=== PATIENT | female | born 1970 | race Caucasian/White ===

== ENCOUNTER → 2017-07-30 | Outpatient (CLI) | payer OTHER | LOC: FIMAGING 15:11 | PROVIDERS: ATTEND Orthopaedic Surgery | DX: M17.11 Unilateral primary osteoarthritis, right knee (principal) ==

== ENCOUNTER 2017-08-20 06:05 | Observation (INO) | payer OTHER ==
[~2017-08-20 06:05] MED LIST: BUPI/epINEPH/KETOROLAC IU ONE; ROPIVACAINE 0.2% 80 MG, EPINEPHrine 0.2 MG, KETOROLAC TROMETHAMINE 30 MG in SYRINGE 0 ML IU ONE; TRANEXAMIC ACID 3,000 MG in NS (SYRINGE) 50 ML IRR ONE
--- NOTE | 2017-08-20 06:26 | PDHPUP ---
History & Physical Update H&P update statement: This history and physical update is based on an assessment of the patient which was completed after admission or registration (within 24 hours), but prior to the surgery/procedure. H&P update: H&P reviewed & patient examined, no change in patient's condition since H&P completed
[2017-08-20] MEDS ORDERED: FAMOTIDINE 20 MG TAB PO ONE (06:45)
[2017-08-20] MEDS ORDERED: TRANEXAMIC ACID 3,000 MG/50 ML BAG IRR ONE (06:45)
[2017-08-20] MEDS ORDERED: ceFAZolin 2 GM/SWFI 2 GM/20 ML SYR IVP ONE (06:45)
[2017-08-20] MEDS ORDERED: ACETAMINOPHEN 325 MG TAB PO ONE (06:45)
[2017-08-20] MEDS ORDERED: DEXAMETHASONE 4 MG/ML VIAL IVP ONE (06:45)
[2017-08-20] MEDS ORDERED: LIDOCAINE 1% 2 ML INJ ID PRN (06:45)
[2017-08-20] MEDS ORDERED: LR 1,000 ML IV ONE (06:45)
--- NOTE | 2017-08-20 07:01 | PDANEPAE ---
ANE Past Medical History - Cardiovascular History Hx Hypertension: No Hx Arrhythmias: No Hx Chest Pain: No Hx Coronary Artery / Peripheral Vascular Disease: No Hx CHF / Valvular Disease: No Hx Palpitations: No - Pulmonary History Hx COPD: No Hx Asthma/Reactive Airway Disease: No Hx Recent Upper Respiratory Infection: No Hx Oxygen in Use at Home: No Hx Sleep Apnea: No Sleep Apnea Screening Result - Last Documented: Negative Pulmonary History Comment: EXERCISE INDUCED ASTHMA LAST USED INHALER 6 MONTHS AGO - Neurologic History Hx Cerebrovascular Accident: No Hx Seizures: No Hx Dementia: No - Endocrine History Hx Diabetes: No - Renal History Hx Renal Disorders: No - Liver History Hx Hepatic Disorders: No - Neurological & Psychiatric Hx Hx Neurological and Psychiatric Disorders: Yes Neurological / Psychiatric History Comment: DEPRESSION - Cancer History Hx Cancer: No - Congenital Disorder History Hx Congenital Disorders: No - GI History Hx Gastrointestinal Disorders: No - Other Health History Other Health History: OSTEOARTHRITIS - Chronic Pain History Chronic Pain: Yes (RT KNEE) - Surgical History Prior Surgeries: APPENDECTOMY 2016. DEISY KNEE SCOPE. LT ACL REPAIRED ANE Review of Systems Review of Systems: - Exercise capacity METS (RN): 6 METS ANE Patient History - Allergies Allergies/Adverse Reactions: methotrexate Allergy (Verified 07/29/17 14:21) INABILITY TO MOVE - Home Medications Home Medications: Prozac 10 MG (*) DAILY 07/29/17 [Last Taken 08/20/17 05:00] - NPO status NPO Since - Liquids (Date): 08/20/17 NPO Since - Liquids (Time): 05:45 NPO Since - Solids (Date): 08/19/17 NPO Since - Solids (Time): 07:30 - Smoking Hx Smoking Status: Never smoked ANE Labs/Vital Signs - Vital Signs Blood Pressure: 137/94 Heart Rate: 72 Respiratory Rate: 20 O2 Sat (%): 94 Height: 165.1 cm Weight: 65.771 kg ANE Physical Exam - Airway Neck exam: FROM Mallampati Score: Class 1 Mouth exam: normal dental/mouth exam - Pulmonary Pulmonary: no respiratory distress - Cardiovascular Cardiovascular: regular rate and rhythym - ASA Status ASA Status: I ANE Anesthesia Plan Anesthesia Plan: spinal Regional Anesthesia: adductor canal FNB
[2017-08-20] MEDS ORDERED: fentaNYL 100 MCG/2 ML INJ ONE (07:04)
[2017-08-20] MEDS ORDERED: MIDAZOLAM 2 MG/2 ML VIAL ONE (07:04)
[2017-08-20] MEDS ORDERED: BUPIVACAINE/DEXTROSE 7.5MG/ML 2 ML SPINAL AMP SP ONE (07:05)
[2017-08-20] MEDS ORDERED: METOCLOPRAMIDE 10 MG/2 ML VIAL ONE (07:05)
[2017-08-20] MEDS ORDERED: LIDOCAINE 2% 100 MG/5 ML SYR ONE (07:05)
[2017-08-20] MEDS ORDERED: DEXAMETHASONE 4 MG/ML VIAL ONE ×2 (07:05)
[2017-08-20] MEDS ORDERED: PROPOFOL/EMULSION 500 MG/50 ML BOTTLE IV ONE (07:05)
[2017-08-20] MEDS ORDERED: BUPIVACAINE/EPI 0.5% 30 ML SDV ONE (08:17)
[2017-08-20] MEDS ORDERED: METOCLOPRAMIDE 10 MG/2 ML VIAL IVP PRN (08:39)
[2017-08-20] MEDS ORDERED: DIPHENOXYLATE/ATROPINE LOMOTIL 1 TAB PO PRN (08:39)
[2017-08-20] MEDS ORDERED: diphenhydrAMINE 25 MG CAP PO PRN (08:39)
[2017-08-20] MEDS ORDERED: MAGNESIUM HYDROXIDE 30 ML UDCUP PO PRN (08:39)
[2017-08-20] MEDS ORDERED: PROMETHAZINE HCL 25 MG SUPPR PR PRN (08:39)
[2017-08-20] MEDS ORDERED: POLYETHYLENE GLYCOL 3350 17 GM PKT PO PRN (08:39)
[2017-08-20] MEDS ORDERED: CYCLOBENZAPRINE 10 MG TAB PO PRN (08:39)
[2017-08-20] MEDS ORDERED: LACTULOSE 20 GM/30 ML UDCUP PO PRN (08:39)
[2017-08-20] MEDS ORDERED: BISACODYL 10 MG SUPP PR PRN (08:39)
[2017-08-20] MEDS ORDERED: TEMAZEPAM 15 MG CAP PO PRN (08:39)
[2017-08-20] MEDS ORDERED: PROMETHAZINE HCL 25 MG/ML INJ IVP PRN (08:39)
--- NOTE | 2017-08-20 08:39 | POSTOPPROG ---
Post Op Note Date of Operation: 08/20/17 Surgeon: Gagan Abdullahi [employer] Operator: jacqui abdullahi Anesthesiologist: Anesthesia: Spinal, Other (Specify) (adductor canal block) Pre-op Diagnosis: L knee OA Post-op Diagnosis: same Indication: left knee pain Procedure: L TKA robot assisted Findings: severe knee OA Inf/Abcess present in the surg proc area at time of surgery?: No EBL: 50-100
[2017-08-20] MEDS ORDERED: ALBUTEROL 3 ML DEYVIAL IH PRN (08:50)
[2017-08-20] MEDS ORDERED: HYDROCODONE/APAP 5/325 TAB PO PRN (08:50)
[2017-08-20] MEDS ORDERED: fentaNYL 100 MCG/2 ML INJ IVP PRN (08:50)
[2017-08-20] MEDS ORDERED: NALOXONE HCL 0.4 MG/ML INJ IVP PRN (08:50)
--- NOTE | 2017-08-20 08:52 | POSTANESTH ---
Post Anesthetic Evaluation Cardiovascular Status: Similar to Pre-Op Cond Respiratory Status: Similar to Pre-op Cond. Level of Consciousness/Mental Status: Mildly Sleepy, Arousable Pain Control: Adequate, Prn Tx Ordered Nausea/Vomiting Control: Adequate, Prn Tx Ordered Complications Possibly Related to Anesthesia: None Noted
[2017-08-20] MEDS ORDERED: LR 1,000 ML IV SCH (09:00)
[2017-08-20 11:22] VITALS: RESP 16
[2017-08-20] MEDS: ACETAMINOPHEN 325 MG TAB PO SCH ×3 (11:35→23:50)
[2017-08-20] MEDS: oxyCODONE IR 5 MG TAB PO PRN ×4 (11:35→18:40)
[2017-08-20] MEDS: ASPIRIN 81 MG CHEWABLE TAB PO SCH ×2 (13:09→22:08)
[2017-08-20] MEDS: SENNOSIDES/DOCUSATE SODIUM TAB PO SCH ×2 (13:09→22:07)
[2017-08-20] MEDS: ceFAZolin 2 GM/SWFI 2 GM/20 ML SYR IVP SCH ×2 (13:59→22:08)
[2017-08-20] MEDS ORDERED: ceFAZolin 2 GM/DEXTROSE 100 ML IV SCH (14:00)
[2017-08-20] MEDS: ONDANSETRON 4 MG/2 ML VIAL IVP PRN ×2 (15:13→20:50)
[2017-08-20] MEDS: ONDANSETRON DISINTEGRATING 4 MG TAB PO PRN (17:33)
[2017-08-20] MEDS: FAMOTIDINE 20 MG TAB PO SCH (22:07)
[2017-08-20] MEDS: HYDROCODONE/APAP 10/325 TAB PO PRN (22:11)
[2017-08-21] MEDS: HYDROCODONE/APAP 10/325 TAB PO PRN ×4 (01:42→13:00)
[2017-08-21] MEDS: ACETAMINOPHEN 325 MG TAB PO SCH ×2 (05:19→13:04)
[2017-08-21 08:08] VITALS: TEMP 98.2
[2017-08-21] MEDS: ONDANSETRON DISINTEGRATING 4 MG TAB PO PRN (08:37)
[2017-08-21] MEDS: FAMOTIDINE 20 MG TAB PO SCH (08:56)
[2017-08-21] MEDS: ASPIRIN 81 MG CHEWABLE TAB PO SCH (08:56)
[2017-08-21] MEDS: SENNOSIDES/DOCUSATE SODIUM TAB PO SCH (08:56)
[2017-08-21] MEDS ORDERED: FLUoxetine 20 MG CAP PO SCH (09:00)
--- NOTE | 2017-08-21 10:28 | SOAPPROG ---
SOAP Progress Note Assessment/Plan: Assessment: Patient is doing well today POD 1 s/p R TKA pain is well controlled. switched from oxycodone to [place]. VTE ppx: recommend aspirin 81 mg BID for 4 weeks D/c planning: d/c to home today nausea: prescribed zofran, sent to her pharmacy via our EMR system Plan: 08/21/17 10:25 Subjective: Renuka is doing well today, denies SOB, chest pain. nausea, improved switching narcotics to [place].zofran helps as well Objective: Vital Signs Temp Pulse Resp BP Pulse Ox 36.8 C 56 L 16 103/71 97 08/21/17 08:00 08/21/17 08:00 08/21/17 08:00 08/21/17 08:20 08/21/17 08:00 Laboratory Results 08/21/17 04:23 08/20/17 08/21/17 08/22/17 05:59 05:59 05:59 Intake Total 2425 Output Total 2860 Balance -435 RLE: incision dressing is clean and dry, NVI, +pf/df ICD10 Worksheet Patient Problems: Problems Problem Status Onset Primary localized osteoarthritis of right knee Acute
--- NOTE | 2017-08-21 11:04 | GDS ---
[f rep st] DISCHARGE SUMMARY ADMISSION DIAGNOSIS: Right knee osteoarthritis. DISCHARGE DIAGNOSIS: Right knee osteoarthritis PROCEDURE: Right total knee arthoplasty, robot assisted. VTE PROPHYLAXIS: Recommend aspirin twice daily for 4 weeks. BRIEF DESCRIPTION OF HOSPITAL STAY: Patient was admitted for an elective joint arthroplasty. The pa tient tolerated the procedure well and has passed physical therapy. The patient was given appropriat e antibiotic prophylaxis and venous thromboembolism prophylaxis. The patient's pain was well control led on oral pain medication, patient was holding down food, and had urinated. Decision was made to d ischarge the patient. The patient was given post-operative prescriptions pre-operatively. PLAN: Follow up as scheduled at Dr. Meza's office September 09 at 9:45 a.m. /[id number]/MODL
[2017-08-21 11:49] VITALS: BP 125/80; PULSE 49; O2SAT 94
--- NOTE | 2017-08-21 13:04 | GOP ---
[f rep st] OPERATIVE REPORT DATE OF OPERATION: 08/20/2017 SURGEON: Pepe Meza MD [employer] MECHANIC: FRANCISCO Thrasher. ANESTHESIA: Spinal. PREOPERATIVE DIAGNOSIS: Right knee osteoarthritis. POSTOPERATIVE DIAGNOSIS: Right knee osteoarthritis. PROCEDURE PERFORMED: Right total knee replacement with computer navigation, robotic assist. FINDINGS: ESTIMATED BLOOD LOSS: 30 mL. INDICATIONS: The patient is a 47-year-old female with severe and progressive pain and deformity of t he right knee unresponsive to conservative care. The risks and benefits of surgical intervention wer e explained in detail. DESCRIPTION OF PROCEDURE: The patient was brought to the operative room and placed on the table in t he supine position. Spinal anesthesia was induced without difficulty. A pneumatic tourniquet was appl ied about the right proximal thigh, and the leg was prepped and draped in a sterile fashion. The leg napoles was applied. After exsanguination by elevation the tourniquet was inflated to 250 mmHg. Incision was made anterior medial from the tibial tuberosity to a point approximately 2 cm proximal t o the superior pole of the patella. Medial parapatellar arthrotomy was carried out from the superior pole of the patella and posteriorly in line with the fibers of the Type II VMO. The medial collateral ligament was elevated and the infrapatellar fat pad was resected. The patella was everted and the articular surface was excised. A 35 mm patellar button was placed. Attention was turned first to the distal aspect of the femur. After exposure of the femur, 2 half pi ns were placed for fixation of the femoral array. In a similar fashion, 2 pins were placed anteromed ial on the tibia for fixation of the tibial array. External land marking and registration of the hip were performed without difficulty. Internal femoral and tibial registration was carried out without difficulty and the femoral and tibial checkpoints were placed and verified for accuracy. Attention was turned to the femur. The foot print for the size 4 femoral component was cut with the saw using the [employer] robotic system and verified for accuracy against the CT based plan. In a similar f ashion, the saw was used to cut the footprint for the size 4 tibial component using the [employer] system an d verified for accuracy against the CT based plan. The tibial articular surface was excised without d ifficulty, followed by the intercondylar box cut. The knee was extended and the remnants of the medial and lateral meniscus were excised. The posterior capsule was injected with ropivacaine, epinephrine and Toradol. A size 4 x 9 mm polyethylene tibial tray was positioned. Trial reduction was then carried out. There was excellent range of motion, alig nment, and stability using the permanent 9 mm polyethylene X3. All trials were then removed. The joint was thoroughly irrigated and carefully dried. The permanent components were implanted. The permanent 9 mm polyethylene was placed without difficulty. The tourniquet was deflated and all bleeders were coagulated. The wound was thoroughly irrigated and closed using interrupted sutures of 2-0 Vicryl for the joint capsule. The subcu was closed with 3-0 V icryl and the skin with 4-0 Monocryl. Dermabond and Steri-Strips were applied followed by a compress baylee dressing. The patient was then moved from the operating room to the recovery room in good conditi on, having tolerated the procedure well. PROCEDURE: Right total knee replacement with Navigation robotic assist. PATHOLOGY: Severe medial/femoral osteoarthritis. ESTIMATED BLOOD LOSS: 30 mL. /[id number]/MODL
== END 2017-08-21 13:18 | disposition home or self-care (01) ==
LOC: INTOOBSV 06:05 → F3N 06:05
PROVIDERS: ADMIT Orthopaedic Surgery; ATTEND Orthopaedic Surgery
DX: M17.11 Unilateral primary osteoarthritis, right knee (principal); J45.909 Unspecified asthma, uncomplicated; F32.9 Major depressive disorder, single episode, unspecified
CPT/HCPCS: 27447; 73560; 97116; 97161; 97166; 97530; 97535; G0378; J0171; J0690; J1100; J1885; J2001; J2250; J2405; J2704; J2765; J3010